=== PATIENT | male | born 1975 | race Caucasian/White ===

== ENCOUNTER 2017-04-12 17:44 | Emergency (ER) | payer SELFPAY ==
[2017-04-12] MEDS ORDERED: MORPHINE SULFATE 10 MG/ML SOL IV ONE (18:25)
[2017-04-12] MEDS ORDERED: SODIUM CHLORIDE 0.9% 1000 ML SOL IV SCH (18:30)
[2017-04-12 18:35] LABS: BASOPHILS % (AUTO) 0 % (0-3); EOSINOPHILS % (AUTO) 1 % (0-9); HEMATOCRIT 42 % (39-53); MEAN CORPUSCULAR HGB CONC 34.9 gm/dl (32.0-36.0); MEAN CORPUSCULAR VOLUME 83 fL (80-100); MONOCYTES % (AUTO) 4.9 % (0-12)
[2017-04-12] MEDS ORDERED: MORPHINE SULFATE 10 MG/ML SOL ONE (18:43)
[2017-04-12 18:49] LABS: POTASSIUM 4.1 mMol/L (3.5-5.1)
[2017-04-12 20:13] LABS: APPEARANCE,URINE Clear; BILIRUBIN,URINE NEGATIVE (NEGATIVE); COLOR,URINE Yellow; GLUCOSE, URINE (UA) NEGATIVE (NEGATIVE); KETONES,URINE TRACE (NEGATIVE); LEUKOCYTE ESTERASE ,URINE NEGATIVE (NEGATIVE); NITRATE,URINE NEGATIVE (NEGATIVE); OCCULT BLOOD,URINE NEGATIVE (NEG-TRACE); UROBILINOGEN,URINE 0.2 (0.2-1.0 EU)
[2017-04-12] MEDS ORDERED: CEFTRIAXONE 1 GM PDS IV ONE (20:14)
[2017-04-12] MEDS ORDERED: VANCOMYCIN HCL 500 MG PDS 1,000 MG in SODIUM CHLORIDE 0.9% 250 ML 250 ML IV ONE (20:16)
[2017-04-12 20:23] LABS: RBC,URINE 0-2 (0-3AV/HPF); WBC,URINE 0-3 (0-5AV/HPF)
[2017-04-12] MEDS ORDERED: VANCOMYCIN HYDROCHLORIDE 500 MG PDS IV ONE (20:26)
[2017-04-12] MEDS ORDERED: CEFTRIAXONE 1 GM PDS ONE (20:26)
[2017-04-12 20:32] VITALS: BP 132/85; PULSE 98; RESP 18; TEMP 99.6; O2SAT 98
== END 2017-04-12 20:56 | disposition short-term general hospital (02) | DRG 872 ==
LOC: ED 17:44
DX: A41.9 Sepsis, unspecified organism (principal)
CPT/HCPCS: 71020; 80053; 81001; 85025; 85651; 87040; 87804; 99285; J0696; J2270; J3370